=== PATIENT | female | born 1940 | race Caucasian/White ===

== ENCOUNTER 2023-07-10 11:49 | Emergency (ER) | payer MEDICARE, OTHER ==
[~2023-07-10] VITALS: Ht 152.4 cm; Wt 63.5 kg
[~2023-07-10 11:49] MED LIST: AMLODIPINE BESYL5 MG PO; ATOR20 PO; ATOR40TA PO; Aspir-Trin325 MG PO; HYDCHL25 PO; LOSA50 PO; OMEP20ER PO
[2023-07-10 12:20] VITALS: BP 140/67
[2023-07-10] MEDS ORDERED: PAXLOVID 150-11 EACH PO (12:40)
== END 2023-07-10 13:25 | disposition home or self-care (01) ==
LOC: ER 11:49
DX: U07.1 COVID-19 (principal); Z79.82 Long term (current) use of aspirin; Z79.899 Other long term (current) drug therapy
CPT/HCPCS: 99282